=== PATIENT | male | born 2000 | race Two or more races ===

== ENCOUNTER 2022-12-09 13:19 | Emergency (ER) | payer MEDICAID, OTHER ==
[~2022-12-09] VITALS: Ht 177.8 cm; Wt 70.0 kg
[2022-12-09 13:39] VITALS: BP 131/75; PULSE 90; RESP 16; O2SAT 97
== END 2022-12-09 18:23 | disposition left against medical advice (07) ==
LOC: ER 13:19 → EDBD 13:19 → ER 18:23
DX: R07.81 Pleurodynia (principal); Z53.21 Procedure and treatment not carried out due to patient leaving prior to being seen by health care provider; Y08.89XA Assault by other specified means, initial encounter; Y93.89 Activity, other specified; Y92.89 Other specified places as the place of occurrence of the external cause; Y99.8 Other external cause status